=== PATIENT | male | born 1975 | race Caucasian/White ===

== ENCOUNTER 2019-12-13 11:23 | Outpatient (CLI) | payer OTHER, SELFPAY ==
--- NOTE | ~2019-12-13 | XR_ITS ---
EXAMINATION: XR chest 2V DATE: 12/13/2019 11:49 INDICATION: Shortness of breath. Sleep apnea. TECHNIQUE: PA and lateral views of the chest were obtained. COMPARISON: None FINDINGS: Calcite nodules at the right lower lung zone consistent with old granulomatous disease. No other airs pace opacities, pulmonary edema, pleural effusion or pneumothorax. The cardiomediastinal silhouette i s normal. Minimal thoracolumbar levocurvature. Mild scattered degenerative skeletal changes in the sp ine and at the bilateral acromioclavicular joints. IMPRESSION: 1. No acute cardiopulmonary disease. Reviewed, dictated and finalized at location A. DEVELOPMENT CONSULTANT
== END 2019-12-13 11:24 | disposition home or self-care (01) ==
LOC: ANHIMG 11:31
PROVIDERS: PCP Emergency Medicine; Visit Provider Emergency Medicine
DX: R06.02 Shortness of breath (principal)
CPT/HCPCS: 71046

== ENCOUNTER 2019-12-19 06:55 | Outpatient (CLI) | payer OTHER, SELFPAY ==
--- NOTE | 2019-12-19 | ECHO_ITS ---
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 Summary 1. Left ventricular chamber dimension is normal. 2. Left ventricular systolic function is normal, estimated at 60-65%. 3. The left ventricular diastolic function is normal. 4. E/e' 5 is not elevated. 5. Global longitudinal strain is normal at -17.4%. 6. There is trace aortic valve regurgitation. 7. There is trace tricuspid valve regurgitation. 8. No pulmonary hypertension, estimated pulmonary arterial systolic pressure is 25 mmHg. 9. There is trace pulmonic regurgitation. Left Ventricle E/e' 5 is not elevated. Global longitudinal strain is normal at -17.4%. Left ventricular chamber dimension is normal. Left ventricular systolic function is normal, estimated at 60-65%. The left ventricular diastolic function is normal. Right Ventricle Right ventricular chamber dimension is normal. Right ventricular systolic function is normal. Left Atria Left atrial chamber dimension is normal. Right Atria Right atrial chamber dimension is normal. Aortic Valve The aortic valve is trileaflet. There is no aortic valve stenosis. There is trace aortic valve regurgitation. Pulmonic Valve There is trace pulmonic regurgitation. Mitral Valve There is no mitral valve stenosis. There is no mitral valve regurgitation. Tricuspid Valve There is trace tricuspid valve regurgitation. No pulmonary hypertension, estimated pulmonary arterial systolic pressure is 25 mmHg. Pericardium/Pleural There is no pericardial effusion. Inferior Vena Cava Normal inferior vena cava with >50% collapse upon inspiration consistent with normal right atrial pressure, 5 mmHg. Aorta The aortic root size at the sinus of Valsalva is normal. Left Ventricular Outflow Tract Name Value Normal LVOT 2D LVOT Diameter 2.0 cm LVOT Doppler LVOT Peak Velocity 88 cm/s LVOT Peak Gradient 3 mmHg LVOT Mean Gradient 2 mmHg LVOT VTI 20 cm LVOT VTI/AV VTI Ratio 1.0 LVOT Stroke Volume 62 ml LVOT CO 3.3 l/min LVOT CI 1.5 l/min/m2 Pulmonic Valve Name Value Normal JOSHUA Patel
== END 2019-12-19 06:56 | disposition home or self-care (01) ==
PROVIDERS: PCP Emergency Medicine; Visit Provider Emergency Medicine
DX: M30.3 Mucocutaneous lymph node syndrome [Kawasaki] (principal); R06.02 Shortness of breath
CPT/HCPCS: 93306

== ENCOUNTER → 2019-12-26 10:52 | Outpatient (CLI) | payer OTHER, SELFPAY ==
--- NOTE | ~2019-12-26 | CT_ITS ---
EXAMINATION: CT abdomen pelvis w con EXAM DATE: 12/26/2019 11:23 INDICATION: Generalized abdominal pain, left lower quadrant pain, loose stools. TECHNIQUE: Spiral CT of the abdomen and pelvis was performed following intravenous injection of 100 m L Omnipaque 350. Axial, coronal and sagittal images were reviewed. The dose-length product (DLP) fo r this examination was 802.50 mGy-cm. The exposure was tailored according to patient size (auto mA e xposure control), and iterative reconstruction (ASIR) was used as additional dose reduction technique . There is no prior study for comparison. FINDINGS: The largest liver cyst is in the left liver lobe lateral segment, measures 1.0 cm. The spl een, pancreas, and adrenal glands are unremarkable. Gallbladder is unremarkable. No biliary obstruc tion. Portal and splenic veins are patent. Kidneys enhance symmetrically. There is no hydronephros is. The prostate is unremarkable. The bladder is collapsed at time of imaging limiting evaluation. There is no retroperitoneal or pelvic lymphadenopathy. The appendix is normal. The stomach and small bowel are unremarkable. There is expected amount of c olonic stool. No free intraperitoneal gas. The heart is normal in size. There are no pericardial or pleural effusions. The lung bases are unremarkable. There are no osteoblastic or osteolytic les ions identified. IMPRESSION: 1. Unremarkable CT abdomen pelvis exam. Reviewed, dictated and finalized at location A. S IDENTIFICATION TECHNICIAN
== END ==
PROVIDERS: PCP Emergency Medicine; Visit Provider Emergency Medicine
DX: R10.9 Unspecified abdominal pain (principal); R14.0 Abdominal distension (gaseous)
CPT/HCPCS: 74177; Q9967